=== PATIENT | male | born 1930 | race American Indian/Alaskan Native ===

== ENCOUNTER 2019-07-07 03:35 | Emergency (ER) | payer MEDICARE ==
--- NOTE | 2019-07-07 04:01 | Emergency Department Report ---
ED CPR HPI - General Stated Complaint: CARDIAC ARREST Time Seen by Provider: 07/07/19 03:35 Source: EMS Mode of arrival: Stretcher Limitations: Altered Mental Status, Physical Limitation - History of Present Illness Initial Comments: 89-year-old male with a past medical history of hemodialysis and COPD presents to the hospital and cardiopulmonary arrest. EMS states they received call for respiratory distress at 2:44 AM. They were on a scene at 3 AM and patient was breathing at a rate of 5-6 times per minute. When transferred into the ambulance he developed PEA and respiratory arrest. Patient has a signed DNR dated from July 2018 however, patient daughters at the scene wanted full resuscitation. Patient was resuscitated secondary to family's wishes. Pt was intubated with ET tube during resuscitation patient received 2 doses of epinephrine for PEA arrest and also had episode of V. fib and had 1 defib shock. Rhythm upon arrival was asystole. Blood glucose 88. As per EMS family reports that patient shortness of breath began during dialysis today and he refused transport to the ER upon completion of dialysis. Pt arrival 3:35 am (so downtime of 35 min prior to arrival) MD Complaint: stopped breathing Initial Findings in the Field: agonal, good pulses ROSC in the Field: No Associated Injuries: No Associated Symptoms: shortness of breath Treatments Prior to Arrival: intubation, BMV, chest compressions, defribrillated shocks # (1), epinephrine mgs # (2) ED Review of Systems ROS: Stated complaint: CARDIAC ARREST Other details as noted in HPI Comment: Unobtainable due to pts medical conditions ED Physical Exam - Other Other exam information: General: unresponsive Head: Atraumatic Eyes: Pupils fixed and dilated ENT: Orally intubated Neck: Normal appearance Chest: No spontaneous respiration CV: pulseless Abdomen: Soft Back: Normal inspection Extremity: Normal inspection infection Neuro: GCS3 Skin: No rash ED Medical Decision Making - Medical Decision Making Patient presents to the ER in asystole therefore resuscitation was continued. Patient received 1 dose of epinephrine and 1 dose of bicarb. Patient had a bradycardic PEA rhythm and rate 20s with fixed and dilated pupils. Further resuscitations discontinued and time of 3:42 am daughter in ED informed of patients - Differential Diagnosis mi, copd, arrhythmia, pe, Critical Care Time: No Critical care attestation.: If time is entered above; I have spent that time in minutes in the direct care of this critically ill patient, excluding procedure time. ED Disposition Clinical Impression: Cardiopulmonary arrest, COPD (chronic obstructive pulmonary disease), ESRD (end stage renal disease) on dialysis Disposition: DC-20 Is pt being admited?: No Condition: Stable Time of Disposition: 04:27
[2019-07-07] MEDS ORDERED: EPINEPHrine 1:10,000 1 MG/10 ML SYRINGE ONE (08:15)
[2019-07-07] MEDS ORDERED: SODIUM BICARB 8.4% 50 MEQ/50 ML SYRINGE IV ONE (08:15)
== END 2019-07-07 06:47 ==
LOC: ED 03:35
DX: I46.9 Cardiac arrest, cause unspecified (principal); J44.9 Chronic obstructive pulmonary disease, unspecified; N18.6 End stage renal disease; Z99.2 Dependence on renal dialysis
CPT/HCPCS: 92950; 99285; J0171